=== PATIENT | male | born 1945 | race Hispanic/Latino ===

== ENCOUNTER → 2018-09-08 | Outpatient (CLI) | payer OTHER ==
[~2018-09-08] MED LIST: ACIDOPHILIS PO; ADVAIR PO; DOXAZOSIN MESYLA4 MG PO; GABAPENTIN600 MG PO; LACTULOSE10 GM/151 PO; METFORMIN HCL500 MG PO; METOPROLOL TART25 MG PO; MIRALAX; NEXIUM40 MG PO; PENTASA500 MG PO; SERTRALINE HCL25 MG PO; SPIRIVA PO
--- NOTE | 2018-09-08 09:38 | Diagnostic Imaging Report ---
EXAM: Renal Ultrasound INDICATION: Renal colic COMPARISON: None TECHNIQUE: Transverse and longitudinal images of the kidneys and bladder were obtained. FINDINGS: Right Kidney: Length: Measures 12.5 x 6.2 x 5.8 cm Appearance: Normal echogenicity. Collecting system: No hydronephrosis Stones: None Cyst/Mass: None Left Kidney: Length: Measures 12.5 x 5.8 x 5.7 cm Appearance: Normal echogenicity. Collecting system: No hydronephrosis Stones: None Cyst/Mass: No evidence of solid mass. There is a simple appearing 5.4 cm left midpole renal cyst. Bladder: Unremarkable in appearance. Right ureteral jet is present. Left ureteral jet is not visualized. IMPRESSION: No evidence of hydronephrosis or stone. Simple appearing 5.4 cm left renal cyst. Signed by: Dr. Shonda Tang MD on 09/08/2018 9:35 AM
--- NOTE | 2018-09-08 09:42 | Diagnostic Imaging Report ---
Exam: KUB - 2 views Clinical History: Renal colic Comparison: Renal ultrasound 09/08/2018. Findings: There is a nonobstructive bowel gas pattern. There are no abnormal calcifications overlying the kidneys or expected course of the ureters. Right-sided pelvic phleboliths. No acute bony abnormalities. Impression: No acute radiographic abnormality. No evidence of renal stone. Signed by: Dr. Shonda Tang MD on 09/08/2018 9:38 AM
== END ==
LOC: RAD 08:24
PROVIDERS: ATTEND Urology
DX: N23 Unspecified renal colic (principal)
CPT/HCPCS: 74018; 76770